=== PATIENT | female | born 1965 | race Caucasian/White ===

== ENCOUNTER 2021-08-19 10:45 | Outpatient (CLI) | payer OTHER, SELFPAY ==
--- NOTE | 2021-08-19 | XR_ITS ---
WS: [id number] Left knee, 3 views, 08/19/2021 Clinical Data: LEFT KNEE PAIN UNSPECIFIED CHRONICITY Comparison: Left knee, 02/03/2016. Findings: No fractures or dislocations are seen. The joint spaces are normal. The patella is intact. The soft t issues are unremarkable. XR/XR knee LT 3V* [id number] Impression: Negative left knee. Kellgren-Mark Classification: grade 0 (none): definite absence of x-ray thang nges of osteoarthritis
== END 2021-08-19 10:46 | disposition home or self-care (01) ==
LOC: RADOUTREAD 08-20 10:48
PROVIDERS: PCP Internal Medicine; Visit Provider Physician Assistant
DX: M25.562 Pain in left knee (principal)
CPT/HCPCS: 73562

== ENCOUNTER 2021-09-25 07:30 | Outpatient (CLI) | payer OTHER, SELFPAY ==
--- NOTE | 2021-09-25 08:00 | MR_ITS ---
WS: [id number] MRI LEFT KNEE HISTORY: LEFT VILLEGAS'S CYST COMPARISON: 08/19/2021 Anterior cruciate ligament: Intact. Posterior cruciate ligament: Intact. Medial collateral ligament: Displacement from the joint line by an extruded meniscus and synovial thi ckening and mild osteophytosis. Increased signal surrounding the MCL but no tear. Posterior lateral corner structures: Intact. Medial menisci: Abnormal signal involving a large portion of the anterior and posterior horns. Intras ubstance degeneration with tear suspected. Blunting of the free edge of the posterior horn with abnor mal signal towards the meniscal root. Lateral meniscus: Intrasubstance degeneration. No definite tears are identified. Extensor mechanism: Distal quadriceps tendon and patellar tendons are intact. Fluid and soft tissue: Large suprapatellar joint effusion. Fluid extends also to surround the femoral condyles and into the knee joint. Edema extends into the infrapatellar fat pad. Soft tissue edema an d synovial thickening. Large lobulated Villegas's cyst extends over length of 7.1 cm and transversely by 3.1 cm. Lobulated cyst with some adjacent inflammation suggesting at least a partial rupture or infl ammation. Osseous and articular structures: Patellofemoral compartment: Mild chondromalacia bilaterally involving the cartilage. There is a small subchondral area of edema at the patellar eminence. Medial compartment: Moderate narrowing of the medial compartment with essentially complete loss of ca rtilage. Small marginal osteophytes and partially extruded meniscus. Small amount of marrow edema Lateral compartment: Moderate narrowing of the lateral compartment with extensive loss of cartilage w ith cartilage thinning. Marginal osteophytes. Small amount of edema along the articular surfaces. Subchondral cyst at the base of the tibial spine. MR/MR knee LT wo con* [id number] IMPRESSION: 1. Large Villegas's cyst measures 7.1 cm in length x 3.1 cm transversely. Lobulat ed cyst with adjacent fluid suggesting an inflammatory process or partial ruptu re with leakage of fluid. 2. Large suprapatellar joint effusion with a joint effusion extending into the medial and lateral joint spaces and soft tissue edema. 3. Mild synovial thickening and edema extending into the infrapatellar fat pad . 4. Moderate narrowing of the medial compartment with loss of cartilage, osteop hytes and extruded menisci. 5. Moderate narrowing lateral compartment with moderate loss of cartilage. 6. Mild chondromalacia patella. 7. Abnormal signal involving the anterior and posterior horns of the medial me niscus consistent with tears and partial extrusion from the joint line.
== END 2021-09-25 07:31 | disposition home or self-care (01) ==
PROVIDERS: PCP Internal Medicine; Visit Provider Family Medicine
DX: M71.22 Synovial cyst of popliteal space [Baker], left knee (principal); M25.462 Effusion, left knee
CPT/HCPCS: 73721

== ENCOUNTER → 2021-12-01 13:25 | Outpatient (BNVA) | payer OTHER, SELFPAY | PROVIDERS: PCP Internal Medicine; Referring Provider Physician Assistant; Visit Provider Specialist | DX: M17.12 Unilateral primary osteoarthritis, left knee (principal) | CPT/HCPCS: 73560; 73565; 80503; 89050 ==

== ENCOUNTER 2022-03-27 07:46 | Outpatient (CLI) | payer OTHER, SELFPAY ==
--- NOTE | 2022-03-27 07:53 | MM_ITS ---
WS: [id number] Bilateral screening 3D tomosynthesis digital mammogram, 03/27/2022 Clinical Data: SCREENING Comparison: 09/07/2017, 08/20/2017, 04/10/2016, 02/03/2016. Findings: The breast parenchymal pattern shows heterogeneous density. No spiculated masses or clustered calcifi cations are seen. There are no secondary signs of carcinoma. There is a nodule in the medial inferior aspect of left breast with a biopsy clip inside which is not changed. MM/[place] [id number] Impression: 1. Negative bilateral mammogram unchanged. 2. Recommend annual screening mammograms. BIRADS: 2-Benign FOLLOW UP: 1 Year Follow-up The CAD coat checker was used.
== END 2022-03-27 07:47 | disposition home or self-care (01) ==
PROVIDERS: PCP Physician Assistant; Visit Provider Physician Assistant
DX: Z12.31 Encounter for screening mammogram for malignant neoplasm of breast (principal)
CPT/HCPCS: 77063; 77067

== ENCOUNTER → 2022-07-01 15:51 | Outpatient (BNVA) | payer OTHER, SELFPAY | PROVIDERS: PCP Physician Assistant; Visit Provider Specialist | DX: M17.11 Unilateral primary osteoarthritis, right knee (principal) | CPT/HCPCS: 73560; 73565 ==